=== PATIENT | female | born 1990 | race Asian ===

== ENCOUNTER 2023-10-28 06:55 | Emergency (ER) | payer OTHER ==
[~2023-10-28] VITALS: Ht 152.4 cm; Wt 51.3 kg
[2023-10-28 08:05] LABS: BASOPHILS % (AUTO) 0.5 % (0.0-2.0); EOSINOPHILS # (AUTO) 0.1 K/uL (0.0-0.7); EOSINOPHILS % (AUTO) 1.6 % (0.0-7.0); HEMATOCRIT 36.1 % (31.2-41.9); HEMOGLOBIN 12.4 g/dL (10.9-14.3); LYMPHOCYTES # (AUTO) 1.8 K/uL (0.8-4.8); LYMPHOCYTES % (AUTO) 26.1 % (20.5-51.5); MEAN CORPUSCULAR HGB CONC 34 g/dL (32.3-35.6); MONOCYTES # (AUTO) 0.5 K/uL (0.1-1.30); MONOCYTES % (AUTO) 6.6 % (0.0-11.0); NEUTROPHILS # (AUTO) 4.5 K/uL (1.8-8.9); NEUTROPHILS % (AUTO) 65.2 % (38.5-71.5); PLATELET COUNT (AUTO) 219 K/uL (179-408); RED BLOOD CELL COUNT(AUTO) 3.76 MIL/uL (3.63-4.92); RED CELL DISTRIBUTION WIDTH 13.1 % (12.3-17.7); WHITE BLOOD COUNT (AUTO) 6.9 K/uL (3.8-11.8)
[2023-10-28 08:26] LABS: DIFFERENTIAL COMMENT 1
[2023-10-28 08:46] LABS: ALANINE AMINOTRANSFERASE 20 U/L (14-59); ALBUMIN 3.5 g/dL (3.4-5.0); ALKALINE PHOSPHATASE 30 U/L (50-136); ASPARTATE AMINOTRANSFERASE 15 U/L (15-37); BILIRUBIN,DIRECT 0.1 mg/dL (0.0-0.2); CALCIUM 8.6 mg/dL (8.5-10.1); CARBON DIOXIDE 27 mmol/L (21-32); CHLORIDE 104 mmol/L (98-107); CREATININE 0.5 mg/dL (0.6-1.3); GLUCOSE 88 mg/dL (74-106); POTASSIUM 3.8 mmol/L (3.5-5.1); SODIUM SERUM 138 mmol/L (136-145); TOTAL PROTEIN, SERUM 6.8 g/dL (6.4-8.2); UREA NITROGEN, BLOOD 7 mg/dL (7-18)
[2023-10-28 09:02] LABS: BILIRUBIN,TOTAL 0.1 mg/dL (0.2-1.0)
[2023-10-28 09:10] LABS: *BILIRUBIN,URIN NEGATIVE (NEGATIVE); *BLOOD, URINE NEGATIVE (NEGATIVE); *CLARITY,URINE CLEAR (CLEAR); *COLOR,URINE YELLOW (YELLOW); *KETONES,URINE NEGATIVE (NEGATIVE); *PROTEIN,URINE NEGATIVE (NEGATIVE); *UROBILINOGEN,URINE 0.2 E.U./dl (NORMAL); LEUKOCYTE ESTERASE ,URINE NEGATIVE (NEGATIVE); NITRITE, URINE NEGATIVE (NEGATIVE); UGLUCOSE NEGATIVE (NEGATIVE)
[2023-10-28] MEDS ORDERED: CYANOCOBALAMIN 1000 MCG/ML VIAL IM ONE (10:15)
[2023-10-28] MEDS ORDERED: PROC5TAB56 PO (10:26)
[2023-10-28] MEDS ORDERED: SYRI-29 MC (10:26)
[2023-10-28] MEDS ORDERED: MECO10006 IM (10:26)
[2023-10-28] MEDS ORDERED: CYANOCOBALAMIN 1000 MCG/ML VIAL ONE (10:28)
[2023-10-28 10:44] LABS: PREGNANCY TEST SERUM QUAN 171200 miul/L (0-6)
[2023-10-28 11:06] VITALS: BP 130/80; TEMP 98; O2SAT 99
== END 2023-10-28 11:07 | disposition home or self-care (01) ==
LOC: ER 06:59
DX: O26.891 Other specified pregnancy related conditions, first trimester (principal); E53.8 Deficiency of other specified B group vitamins; R10.2 Pelvic and perineal pain; R10.32 Left lower quadrant pain; Z3A.01 Less than 8 weeks gestation of pregnancy; Z79.899 Other long term (current) drug therapy; Z88.1 Allergy status to other antibiotic agents
CPT/HCPCS: 99285; 76856; 80076; 80048; 81003; 82607; 85025; 84702; 36415; 96372; J3420; A4606; A4663

== ENCOUNTER 2023-11-02 20:43 | Emergency (ER) | payer OTHER ==
[~2023-11-02] VITALS: Ht 152.4 cm; Wt 54.4 kg
[~2023-11-02 20:43] MED LIST: MECO10006 IM; PROC5TAB56 PO; SYRI-29 MC
[2023-11-02 20:54] VITALS: O2SAT 99
[2023-11-02 22:25] LABS: BASOPHILS # (AUTO) 0.1 K/UL (0.0-0.2); EOSINOPHILS # (AUTO) 0.2 K/uL (0.0-0.7); EOSINOPHILS % (AUTO) 1.7 % (0.0-7.0); HEMATOCRIT 39.3 % (31.2-41.9); HEMOGLOBIN 13.1 g/dL (10.9-14.3); LYMPHOCYTES # (AUTO) 2.5 K/uL (0.8-4.8); MEAN CORPUSCULAR HGB CONC 33 g/dL (32.3-35.6); MEAN CORPUSCULAR VOLUME 96.1 fL (75.5-95.3); MONOCYTES # (AUTO) 0.9 K/uL (0.1-1.30); MONOCYTES % (AUTO) 7.2 % (0.0-11.0); NEUTROPHILS # (AUTO) 8.2 K/uL (1.8-8.9); NEUTROPHILS % (AUTO) 69.1 % (38.5-71.5); PLATELET COUNT (AUTO) 241 K/uL (179-408); RED BLOOD CELL COUNT(AUTO) 4.09 MIL/uL (3.63-4.92); RED CELL DISTRIBUTION WIDTH 13.6 % (12.3-17.7); WHITE BLOOD COUNT (AUTO) 11.9 K/uL (3.8-11.8)
[2023-11-02 22:37] LABS: DIFFERENTIAL COMMENT 1
[2023-11-02 22:43] LABS: *BILIRUBIN,URIN NEGATIVE (NEGATIVE); *CLARITY,URINE CLEAR (CLEAR); *COLOR,URINE YELLOW (YELLOW); *KETONES,URINE NEGATIVE (NEGATIVE); *PROTEIN,URINE NEGATIVE (NEGATIVE); *UROBILINOGEN,URINE 0.2 E.U./dl (NORMAL); LEUKOCYTE ESTERASE ,URINE NEGATIVE (NEGATIVE); NITRITE, URINE NEGATIVE (NEGATIVE); UGLUCOSE NEGATIVE (NEGATIVE)
[2023-11-02 22:44] LABS: CALCIUM 9.4 mg/dL (8.5-10.1); CARBON DIOXIDE 29 mmol/L (21-32); CHLORIDE 101 mmol/L (98-107); CREATININE 0.5 mg/dL (0.6-1.3); GLUCOSE 87 mg/dL (74-106); POTASSIUM 3.7 mmol/L (3.5-5.1); SODIUM SERUM 136 mmol/L (136-145); UREA NITROGEN, BLOOD 10 mg/dL (7-18)
[2023-11-02 22:48] LABS: *BLOOD, URINE TRACE (NEGATIVE)
[2023-11-02 22:50] LABS: ALANINE AMINOTRANSFERASE 22 U/L (14-59); ALBUMIN 3.9 g/dL (3.4-5.0); ALKALINE PHOSPHATASE 51 U/L (50-136); ASPARTATE AMINOTRANSFERASE 9 U/L (15-37); BILIRUBIN,DIRECT 0.1 mg/dL (0.0-0.2); BILIRUBIN,TOTAL 0.2 mg/dL (0.2-1.0); LIPASE 43 U/L (16-77); TOTAL PROTEIN, SERUM 7.8 g/dL (6.4-8.2)
[2023-11-02 23:13] LABS: PREGNANCY TEST SERUM QUAN 239859 miul/L (0-6)
[2023-11-02 23:16] LABS: BACTERIA,URINE FEW /HPF (NONE SEEN); RBC,URINE 0-3 /HPF (0-3); WBC,URINE NONE SEEN /HPF (0-3)
[2023-11-02 23:17] LABS: SQUAMOUS EPITHELIAL CELL,UR MODERATE /HPF (NONE SEEN); URINE AMORPHOUS URATE MODERATE /HPF
== END 2023-11-02 23:59 | disposition home or self-care (01) ==
LOC: ER 20:48
DX: O26.899 Other specified pregnancy related conditions, unspecified trimester (principal); G47.00 Insomnia, unspecified; R82.71 Bacteriuria; R10.2 Pelvic and perineal pain; Z79.899 Other long term (current) drug therapy; Z91.018 Allergy to other foods
CPT/HCPCS: 36415; 83690; 85025; 85730; A4606; A4663

== ENCOUNTER 2024-02-24 02:21 | Emergency (ER) | payer OTHER ==
[~2024-02-24] VITALS: Ht 152.4 cm; Wt 65.8 kg
[2024-02-24 02:52] LABS: *BILIRUBIN,URIN NEGATIVE (NEGATIVE); *BLOOD, URINE NEGATIVE (NEGATIVE); *CLARITY,URINE CLEAR (CLEAR); *COLOR,URINE YELLOW (YELLOW); *KETONES,URINE NEGATIVE (NEGATIVE); *PROTEIN,URINE NEGATIVE (NEGATIVE); *UROBILINOGEN,URINE 0.2 E.U./dl (NORMAL); LEUKOCYTE ESTERASE ,URINE NEGATIVE (NEGATIVE); NITRITE, URINE NEGATIVE (NEGATIVE); PH,URINE 7.5 (5.0-8.0); UGLUCOSE NEGATIVE (NEGATIVE)
[2024-02-24 03:00] VITALS: BP 123/84; TEMP 98.2; O2SAT 97
== END 2024-02-24 03:04 | disposition home or self-care (01) ==
LOC: ER 02:24
DX: B34.9 Viral infection, unspecified (principal); Z79.899 Other long term (current) drug therapy; Z88.1 Allergy status to other antibiotic agents
CPT/HCPCS: A4606; A4663

== ENCOUNTER 2024-07-15 18:20 | Emergency (ER) | payer OTHER ==
[~2024-07-15] VITALS: Ht 152.4 cm; Wt 65.8 kg
[2024-07-15 19:10] LABS: BASOPHILS % (AUTO) 0.6 % (0.0-2.0); EOSINOPHILS # (AUTO) 0.7 K/uL (0.0-0.7); HEMATOCRIT 39.7 % (31.2-41.9); HEMOGLOBIN 13.3 g/dL (10.9-14.3); LYMPHOCYTES # (AUTO) 2.5 K/uL (0.8-4.8); LYMPHOCYTES % (AUTO) 36.8 % (20.5-51.5); MEAN CORPUSCULAR HEMOGLOBIN 32.2 uug (24.7-32.8); MEAN CORPUSCULAR HGB CONC 34 g/dL (32.3-35.6); MONOCYTES # (AUTO) 0.5 K/uL (0.1-1.30); MONOCYTES % (AUTO) 7.3 % (0.0-11.0); NEUTROPHILS % (AUTO) 44.3 % (38.5-71.5); PLATELET COUNT (AUTO) 255 K/uL (179-408); RED BLOOD CELL COUNT(AUTO) 4.14 MIL/uL (3.63-4.92); RED CELL DISTRIBUTION WIDTH 13.5 % (12.3-17.7); WHITE BLOOD COUNT (AUTO) 6.7 K/uL (3.8-11.8)
[2024-07-15 19:12] LABS: DIFFERENTIAL COMMENT 1
[2024-07-15 19:18] LABS: CALCIUM 8.4 mg/dL (8.5-10.1); CREATININE 0.6 mg/dL (0.6-1.3); POTASSIUM 3.3 mmol/L (3.5-5.1)
[2024-07-15] MEDS: DEXAMETHASONE SOD PHOSPHATE 4 MG INJ IM ONE (19:23)
[2024-07-15] MEDS: hydrOXYzine HCL 25 MG TABLET PO ONE (19:26)
[2024-07-15] MEDS ORDERED: LORAZEPAM 0.5 MG TABLET ONE (20:45)
[2024-07-15] MEDS: LORAZEPAM 0.5 MG TABLET PO ONE (20:47)
[2024-07-15] MEDS ORDERED: PERM60CR4 TP (20:54)
[2024-07-15] MEDS ORDERED: HYDR-501 PO (20:54)
[2024-07-15] MEDS ORDERED: PRED20TA PO (20:54)
[2024-07-15 21:12] VITALS: BP 124/78; TEMP 98; O2SAT 98
== END 2024-07-15 21:13 | disposition home or self-care (01) ==
LOC: ER 18:21
DX: R21 Rash and other nonspecific skin eruption (principal); Z79.52 Long term (current) use of systemic steroids
CPT/HCPCS: 99283; 80048; 85025; 36415; 96372; J1100; A4606; A4663

== ENCOUNTER 2024-07-17 13:03 | Emergency (ER) | payer OTHER ==
[~2024-07-17] VITALS: Ht 167.6 cm; Wt 65.8 kg
[~2024-07-17 13:03] MED LIST changes: +HYDR-501 PO; +PERM60CR4 TP; +PRED20TA PO
[2024-07-17] MEDS ORDERED: CYPR4TAB44 PO (13:58)
[2024-07-17] MEDS ORDERED: LORA0.5T48 PO ×2 (13:58→14:02)
[2024-07-17 14:07] VITALS: BP 131/77; O2SAT 98
== END 2024-07-17 14:07 | disposition home or self-care (01) ==
LOC: ER 13:03
DX: R21 Rash and other nonspecific skin eruption (principal); L29.9 Pruritus, unspecified; Z79.52 Long term (current) use of systemic steroids; Z79.899 Other long term (current) drug therapy
CPT/HCPCS: A4606; A4663

== ENCOUNTER → 2025-01-29 | Emergency (ER) | payer OTHER ==
[~2025-01-29] VITALS: Ht 165.1 cm; Wt 59.0 kg
[~2025-01-29] MED LIST changes: +CYPR4TAB44 PO; +FAMO40TA7 PO; +FAMOTIDINE 20 MG TABLET ONE; +LORA0.5T48 PO; +PRED50TA PO; +diphenhydrAMINE 50 MG CAPSULE ONE; +predniSONE 20 MG TABLET ONE
[2025-01-29] MEDS: diphenhydrAMINE 50 MG CAPSULE PO ONE (23:10)
[2025-01-29] MEDS: FAMOTIDINE 20 MG TABLET PO ONE (23:10)
[2025-01-29] MEDS: predniSONE 10 MG TABLET PO ONE (23:10)
[2025-01-29] MEDS: EPINEPHRINE-PF 1:1000 1 MG/ML AMPUL/VIAL SQ ONE (23:10)
[2025-01-29 23:19] VITALS: BP 110/73; O2SAT 98
== END | disposition home or self-care (01) ==
LOC: ER 22:02
DX: L50.9 Urticaria, unspecified (principal); F32.A Depression, unspecified; Z79.52 Long term (current) use of systemic steroids
CPT/HCPCS: 99284; 96372; Q0163; J7512; A4606; A4663

== ENCOUNTER 2025-01-31 19:35 | Emergency (ER) | payer OTHER ==
[~2025-01-31] VITALS: Ht 152.4 cm; Wt 59.0 kg
[~2025-01-31 19:35] MED LIST changes: -FAMOTIDINE 20 MG TABLET ONE; -diphenhydrAMINE 50 MG CAPSULE ONE; -predniSONE 20 MG TABLET ONE
[2025-01-31] MEDS ORDERED: methylPREDNISolone SOD SUCC 125 MG/2 ML VIAL ONE (20:06)
[2025-01-31] MEDS: methylPREDNISolone SOD SUCC 40 MG/ML VIAL IM ONE (20:21)
[2025-01-31] MEDS: CETIRIZINE HCL 10 MG TABLET PO ONE (20:21)
[2025-01-31] MEDS: FAMOTIDINE 20 MG TABLET PO ONE (20:21)
[2025-01-31 21:40] VITALS: BP 128/74; TEMP 98; O2SAT 99
== END 2025-01-31 21:40 | disposition home or self-care (01) ==
LOC: ER 19:35
DX: L29.9 Pruritus, unspecified (principal); R03.0 Elevated blood-pressure reading, without diagnosis of hypertension; F32.A Depression, unspecified; Z79.52 Long term (current) use of systemic steroids
CPT/HCPCS: 99283; 96372; J2919; A4606; A4663